=== PATIENT | male | born 1965 | race Caucasian/White ===

== ENCOUNTER 2017-10-08 13:05 | Emergency (ER) | payer OTHER ==
[~2017-10-08] VITALS: Ht 180.3 cm; Wt 81.6 kg
[2017-10-08] MEDS ORDERED: ACET-2154 PO (13:19)
[2017-10-08] MEDS ORDERED: IBUP-1957 PO (13:19)
[2017-10-08] MEDS ORDERED: LABETALOL HCL 100 MG/20 ML VIAL IV ONE ×2 (13:45→16:30)
[2017-10-08] MEDS ORDERED: LABETALOL HCL 100 MG/20 ML VIAL ONE ×2 (13:55→16:44)
--- NOTE | 2017-10-08 13:57 | NUR ---
PT IS IN ROOM #1A. DR JENKINS EVALUATED THE PT. PT C/O RIGHT SIDE HEADACHE AND TAERS FROM RIGHT EYE.
[2017-10-08] MEDS ORDERED: IOHEXOL 350 100 ML INFUS..BTL ONE (13:59)
[2017-10-08] MEDS ORDERED: SWABABLE VALVE TRANSFER SET EA MC ONE (13:59)
[2017-10-08] MEDS ORDERED: IV NORMAL SALINE 250 ML IV ONE (13:59)
[2017-10-08] MEDS ORDERED: hydrALAZINE HCL 20 MG/1 ML VIAL IV ONE (14:45)
--- NOTE | 2017-10-08 14:53 | NUR ---
Called [facility] Hotline ([phone]) as requested by . to call back.
[2017-10-08] MEDS ORDERED: MORPHINE SULFATE 4 MG/1 ML DISP.SYRIN IV ONE (15:15)
[2017-10-08] MEDS ORDERED: ONDANSETRON 4 MG/2 ML VIAL IV ONE ×2 (15:15→18:15)
[2017-10-08 15:21] LABS: POTASSIUM 3.5 mmol/L (3.5-5.1)
[2017-10-08 15:23] LABS: BASOPHILS % (AUTO) 0.6 % (0.0-2.0); EOSINOPHILS # (AUTO) 0.1 K/uL (0.0-0.7); EOSINOPHILS % (AUTO) 0.9 % (0.0-7.0); HEMATOCRIT 44.3 % (36.7-47.1); HEMOGLOBIN 14.6 g/dL (12.5-16.3); LYMPHOCYTES # (AUTO) 1.1 K/uL (20.0-40.0); LYMPHOCYTES % (AUTO) 16.6 % (20.5-51.5); MEAN CORPUSCULAR HEMOGLOBIN 31.2 uug (23.8-33.4); MEAN CORPUSCULAR HGB CONC 33 g/dL (32.5-36.3); MEAN CORPUSCULAR VOLUME 94.7 fL (73.0-96.2); MONOCYTES # (AUTO) 0.5 K/uL (2.0-10.0); NEUTROPHILS % (AUTO) 74.9 % (38.5-71.5); PLATELET COUNT (AUTO) 163 K/uL (152-348); RED BLOOD CELL COUNT(AUTO) 4.68 MIL/uL (4.06-5.63); WHITE BLOOD COUNT (AUTO) 6.7 K/uL (3.6-10.2)
[2017-10-08 15:27] LABS: BILIRUBIN,DIRECT 0.1 mg/dL (0.0-0.2); BILIRUBIN,TOTAL 0.6 mg/dL (0.2-1.0); TOTAL PROTEIN, SERUM 6.5 g/dL (6.4-8.2)
[2017-10-08] MEDS ORDERED: MORPHINE SULFATE 4 MG/1 ML DISP.SYRIN ONE (15:46)
--- NOTE | 2017-10-08 15:46 | NUR ---
als ambulance was called to transfer pt to MRI department in [facility]. [place] is 45 minutes.
[2017-10-08] MEDS ORDERED: ONDANSETRON 4 MG/2 ML VIAL ONE (15:47)
[2017-10-08] MEDS ORDERED: ASPIRIN 325 MG TABLET ONE (16:29)
[2017-10-08] MEDS ORDERED: CLOPIDOGREL 75 MG TABLET ONE (16:29)
[2017-10-08] MEDS ORDERED: CLOPIDOGREL 75 MG TABLET PO ONE (16:30)
[2017-10-08] MEDS ORDERED: ASPIRIN 325 MG TABLET PO ONE (16:30)
--- NOTE | 2017-10-08 17:11 | NUR ---
dr Munguia talked to dr Agrawal from [facility]. dr Munguia cancelled pt's transfer to [facility] for MRI test. Pt is going to be transfered to [facility]. Pt's medical information was faxed to [facility] coordinator Yong, waiting for transfer information.
[2017-10-08] MEDS ORDERED: IV NORMAL SALINE 1000 ML BAG IV ONE ×2 (17:15→17:30)
[2017-10-08] MEDS ORDERED: NICARDIPINE 20 MG/200 ML IV ONE (17:30)
[2017-10-08] MEDS ORDERED: D5W IV ONE (17:30)
[2017-10-08] MEDS ORDERED: NICARDIPINE IN NS 200 ML IV ONE (17:36)
[2017-10-08 17:42] VITALS: BP 189/116
--- NOTE | 2017-10-08 17:45 | NUR ---
dr Munguia tried to contact to dr Woodward 3 times by phone ). She left messages on answer norma.
[2017-10-08] MEDS ORDERED: LORAZEPAM 2 MG/1 ML VIAL ONE (18:12)
--- NOTE | 2017-10-08 18:12 | NUR ---
FARHAT FROM [facility] TRANSFER TEAM OF [facility] CALLED WITH TRANSFER INFORMATION. CHIQUI IS 1 HOUR. PT IS GOING TO [facility] , [address] TELEMETRY FLOOR. ADMITING MD IS DR MALIN.
[2017-10-08] MEDS ORDERED: LORAZEPAM 2 MG/1 ML VIAL IV ONE (18:15)
[2017-10-08] MEDS ORDERED: HYDROMORPHONE 1 MG/1 ML DISP.SYRIN IV ONE (18:15)
--- NOTE | 2017-10-08 18:55 | NUR ---
REPORT GIVEN TO COMPOSITE TECHNICIAN RN. PT IS RESTING IN BED COMFORTABLY. PT'S AT THE BEDSIDE.
--- NOTE | 2017-10-08 19:48 | NUR ---
PT PICKED UP [facility], REPORT GIVEN BY CARLITOS GAR.
== END 2017-10-08 20:00 | disposition short-term general hospital (02) ==
LOC: ER 13:05
DX: I77.71 Dissection of carotid artery (principal); I10 Essential (primary) hypertension; Z88.0 Allergy status to penicillin
CPT/HCPCS: 36415; 70450; 70498; 71045; 80048; 80076; 84484; 85025; 85730; 86850; 86900; 86901; 93005; 96361; 96374; 96375; 96376; 99285; A4663; J2060; J2270; J2405; J3490 ×2; J7030 ×2; J7050; Q9967; 70030-TC